=== PATIENT | female | born 1960 | race Caucasian/White ===

== ENCOUNTER 2017-03-22 16:47 | Emergency (ER) | payer MEDICAID ==
[~2017-03-22] VITALS: Ht 157.5 cm; Wt 78.0 kg
[2017-03-22] MEDS ORDERED: HYDROCODONE/ACETAMINOPHEN 10/325MG TABLET PO ONE (23:15)
[2017-03-23] MEDS ORDERED: CLONIDINE 0.2MG TABLET PO ONE (02:00)
[2017-03-23 02:43] VITALS: BP 186/89
== END 2017-03-23 05:48 | disposition home or self-care (01) ==
LOC: ER 17:25
DX: M25.561 Pain in right knee (principal); M25.562 Pain in left knee; M19.90 Unspecified osteoarthritis, unspecified site; I10 Essential (primary) hypertension; E11.9 Type 2 diabetes mellitus without complications
CPT/HCPCS: 36415; 73560; 84550; 99285; Z7610